=== PATIENT | female | born 1960 | race American Indian/Alaskan Native ===

== ENCOUNTER 2017-10-21 09:03 | Outpatient (CLI) | payer BC ==
[2017-10-21 09:54] LABS: Blood Urea Nitrogen 7 mg/dL (7-17)
--- NOTE | 2017-10-21 13:04 | Cat Scan Report ---
CT scan of head without and with contrast: History: Headache. Findings: Ventricles are normal in size and midline in location. No evidence of acute ischemia, hemorrhage or mass. No extra-axial fluid collection. Normal brainstem and cerebellum. Impression: No acute intracranial abnormality.
--- NOTE | 2017-10-21 13:06 | Cat Scan Report ---
CT scan of chest without and with IV contrast: History: Headache, chest pain, flank pain. Findings: No endobronchial or mediastinal mass. No mediastinal, hilar or axillary adenopathy. No evidence of aneurysm. No pleural pericardial effusion. Normal lung parenchyma. No discrete nodularity or consolidation. Impression: Essentially negative CT scan of chest.
--- NOTE | 2017-10-21 13:09 | Cat Scan Report ---
CT scan of abdomen and pelvis without and with IV contrast: History: Headaches chest pain and flank pain. Findings: Normal liver spleen pancreas and gallbladder. Normal adrenals. 1 cm hypodensity left kidney suggestive of cysts. 5 mm hypodensity right kidney probably a cyst. No calculi. No hydronephrosis. Normal bladder. No free intraperitoneal fluid or air. No evidence of adenopathy. Normal aorta. Gaseous colon with moderate volume stool in colon. No evidence of appendicitis or diverticulitis. No bowel distention. Impression: Cysts right and left kidney. Gaseous colon with moderate volume stool in colon.
--- NOTE | 2017-10-25 17:51 | Vascular Lab Report ---
LOWER EXTREMITY ARTERIAL DUPLEX: REASON FOR EXAM: Lower extremity pain. COMMENTS ON THE RIGHT: Triphasic waveforms are seen proximally. Biphasic waveforms are seen distally. No significant velocity gradients are identified. Scattered plaque is seen throughout. Findings are consistent with mildly abnormal perfusion. Findings are may not be consistent with the ability to heal distal wounds. COMMENTS ON THE LEFT: Triphasic waveforms are seen proximally. Biphasic waveforms are seen distally. No significant velocity gradients are identified. Scattered plaque is seen throughout. Findings are consistent with mildly abnormal perfusion. Findings are may not be with the ability to heal distal wounds. IMPRESSION: RIGHT: Mildly abnormal arterial flow. LEFT:Mildly abnormal arterial flow.
== END 2017-10-21 09:04 | disposition home or self-care (01) ==
LOC: VAS 09:03
PROVIDERS: ATTEND Family Medicine Adult Medicine
DX: N28.1 Cyst of kidney, acquired (principal); R07.9 Chest pain, unspecified; R51 Headache; M79.604 Pain in right leg; M79.605 Pain in left leg; M79.89 Other specified soft tissue disorders; E11.9 Type 2 diabetes mellitus without complications; F17.200 Nicotine dependence, unspecified, uncomplicated; E78.00 Pure hypercholesterolemia, unspecified; K21.9 Gastro-esophageal reflux disease without esophagitis; Z90.710 Acquired absence of both cervix and uterus; E07.9 Disorder of thyroid, unspecified
CPT/HCPCS: 36415; 70470; 71270; 74178; 82565; 84520; 93925; 93970; Q9967

== ENCOUNTER 2017-12-19 07:30 | Outpatient (CLI) | payer BC ==
--- NOTE | 2017-12-19 08:06 | Ultrasound Report ---
ULTRASOUND ABDOMEN LIMITED: TECHNIQUE: Transabdominal ultrasound with color Doppler interrogation. HISTORY: Generalized abdominal pain. COMPARISON: CT abdomen pelvis with and without contrast performed 10/21/17. FINDINGS: LIVER: Normal. BILIARY SYSTEM: Normal. The CBD measures 4.8 mm. PANCREAS: Normal. RIGHT KIDNEY: Normal. PROXIMAL AORTA: Normal. ASCITES: None. IMPRESSION: Unremarkable exam.
== END 2017-12-19 07:31 | disposition home or self-care (01) ==
LOC: US 07:30
PROVIDERS: ATTEND Internal Medicine Gastroenterology
DX: R10.84 Generalized abdominal pain (principal); E78.00 Pure hypercholesterolemia, unspecified
CPT/HCPCS: 76705